=== PATIENT | male | born 1975 | race Asian ===

== ENCOUNTER → 2019-12-22 | Outpatient (CLI) | payer OTHER | END | disposition home or self-care (01) | LOC: EMPHLTH 07:37 | DX: Z02.1 Encounter for pre-employment examination (principal); R76.11 Nonspecific reaction to tuberculin skin test without active tuberculosis ==

== ENCOUNTER → 2020-08-24 | Outpatient (CLI) | payer OTHER | END | disposition home or self-care (01) | LOC: EMS 14:41 | DX: Z20.828 Contact with and (suspected) exposure to other viral communicable diseases (principal) | CPT/HCPCS: U0003 ==

== ENCOUNTER 2020-09-27 03:47 | Emergency (ER) | payer OTHER ==
[~2020-09-27] VITALS: Ht 167.6 cm; Wt 69.1 kg
[2020-09-27] MEDS ORDERED: IBUPROFEN 600 MG TABLET PO ONE (04:30)
[2020-09-27] MEDS ORDERED: GuaiFENesin/D-METHORPHAN [SUGAR-FREE] 200-20MG/10 ML SYRUP UDCUP PO ONE (04:30)
[2020-09-27 05:09] LABS: BASOPHILS % (AUTO) 0.2 % (0.0-2.0); EOSINOPHILS % (AUTO) 1.6 % (1.0-6.0); HEMATOCRIT 43.9 % (41-53); HEMOGLOBIN 14.7 g/dL (13.5-17.5); LYMPHOCYTES # (AUTO) 0.5 K/uL (1.0-4.8); LYMPHOCYTES % (AUTO) 6.7 % (22.0-44.0); MEAN CORPUSCULAR HEMOGLOBIN 29.1 pg (26.0-34.0); MEAN CORPUSCULAR HGB CONC 33.5 G/dL (31.0-37.0); MEAN CORPUSCULAR VOLUME 87 fL (80-100); MONOCYTES # (AUTO) 1.4 K/uL (0.1-1.0); MONOCYTES % (AUTO) 18.2 % (2.0-9.0); NEUTROPHILS # (AUTO) 5.4 K/uL (1.8-7.7); NEUTROPHILS % (AUTO) 73.3 % (40.0-70.0); PLATELET COUNT (AUTO) 147 K/uL (150-450); RED BLOOD CELL COUNT(AUTO) 5.06 MIL/uL (4.50-5.90)
[2020-09-27 05:15] LABS: COVID AG,FIA SOURCE NASOPHARYNGEAL
[2020-09-27 05:16] LABS: ANION GAP 7 mmol/L (8-16); CALCIUM, TOTAL 9.6 mg/dL (8.8-10.5); CARBON DIOXIDE 28 mmol/L (22-29); CHLORIDE 101 mmol/L (98-107); CREATININE 1.12 mg/dL (0.60-1.30); GLOMERULAR FILTR. RATE CALC > 60 mL/min (>60); GLUCOSE,RANDOM 118 mg/dL (70-110); POTASSIUM 3.7 mmol/L (3.5-5.1); SODIUM SERUM 136 mmol/L (136-145); UREA NITROGEN, BLOOD 14 mg/dL (7-18)
[2020-09-27 05:22] LABS: ALANINE AMINOTRANSFERASE 53 U/L (12-78); ALBUMIN 3.8 g/dL (3.4-5.0); ALKALINE PHOSPHATASE 87 U/L (46-116); ASPARTATE AMINOTRANSFERASE 29 U/L (15-37); BILIRUBIN,TOTAL 0.4 mg/dL (0.1-1.0); TOTAL PROTEIN, SERUM 7.6 g/dL (6.4-8.2)
[2020-09-27 05:42] LABS: INFLUENZA TYPE A NEGATIVE FOR TYPE A (NEGATIVE); INFLUENZA TYPE B NEGATIVE FOR TYPE B (NEGATIVE)
[2020-09-27 06:00] VITALS: BP 127/69
== END 2020-09-27 06:10 | disposition home or self-care (01) ==
LOC: EMS 03:49
DX: U07.1 COVID-19 (principal); J06.9 Acute upper respiratory infection, unspecified
CPT/HCPCS: 36415; 80053; 85025; 87426; 87804; 99283; U0003

== ENCOUNTER → 2020-10-12 | Outpatient (CLI) | payer OTHER | END | disposition home or self-care (01) | LOC: RADPV 09:44 | PROVIDERS: ATTEND Internal Medicine | DX: J98.11 Atelectasis (principal); R91.8 Other nonspecific abnormal finding of lung field; J12.82 Pneumonia due to coronavirus disease 2019 | CPT/HCPCS: 71046; 71046-TC ==

== ENCOUNTER → 2020-11-30 | Outpatient (CLI) | payer OTHER | END | disposition home or self-care (01) | LOC: RADMN 17:07 | PROVIDERS: ATTEND Internal Medicine | DX: R05 Cough (principal) | CPT/HCPCS: 71046; 71046-TC ==